=== PATIENT | male | born 1960 | race Two or more races ===

== ENCOUNTER 2016-07-07 19:51 | Inpatient (IN) | payer OTHER ==
[~2016-07-07] VITALS: Ht 160 cm; Wt 65.8 kg
[~2016-07-07 19:51] MED LIST: ALD25 PO; AMLODIPINE BESY10 M1 PO; AMLODIPINE BESYL5 M1 PO; AMLODIPINE10 M1 PO; APAP/HYDROCODON1 T13 PO; APIDRA100 U/M1 SC; ASPIR-LOW81 M1 PO; BUMETANIDE1 MG PO; CARVEDILOL25 M1 PO; CHANTIX STARTING1 MG PO; CLINDAMYCIN HC300 MG PO; COMBIVENT1 ARO IH; CORE25 PO; DUONEB3 ML NEB; ECOTRIN PO; ELA25 PO; ENALAPRIL MALEA20 MG PO; FUROSEMIDE40 MG PO; GABAPENTIN800 M1 PO; GLIPIZIDE10 M2 PO; GLIPIZIDE10 MG PO; GLU10 PO; GOOD SENSE ASPI81 M3 PO; HUMALOG100 U/ML SC; HYDRALAZINE HCL25 MG PO; HYDRALAZINE HYD50 MG PO; HYDRALAZINE50 M1 PO; HYDROCODONE/ACE1 TA2 PO; IBUPROFEN400 MG PO; L40 PO; LAC PO; LANTI SQ; LANTUS SOLOS100 U/M1 SC; LANTUS SOLOS100 U/M1 SQ; LASIX40 MG PO; LEV500 PO; LEVAQUIN750 MG PO; LEVEMIR100 U/M1 SC; LEVEMIR100 U/M1 SQ; LIPITOR40 MG PO; LIPITOR80 MG PO; LORAZEPAM0.5 MG PO; MAGNESIUM OXID400 MG PO; MEDDP PO; METOLAZONE2.5 M1 PO; NEU300 PO; NEURONTIN400 MG PO; NEURONTIN600 MG PO; NICODERM C21 MG/241 TOP; NICOTINE T14 MG/24 H TOP; NOR10T PO; NOR5 PO; NORCO1 TA2 PO; NOVOLIN R100 U/ML SC; PLA75 PO; PREDNISONE5 MG PO; PRILOSEC20 MG PO; QUETIAPINE FUM100 MG PO; SERO100 PO; SEROQUEL200 MG PO; SERTRALINE HYD100 MG PO; SERTRALINE HYDR50 M1 PO; SIMVASTATIN40 M1 PO; SPIRIVA18 MC1 INH; SPIRONOLACTONE25 MG PO; SYMBICORT1 AE2 INH; SYNTHROID0.025 MG PO; THERAGRAN-M1 TA4 PO; TRA100 PO; TRAZODONE150 M1 PO; TRE400 PO; TYLENOL WITH CO1 TA2 PO; ULT50 PO; V10 PO; V2 PO; VENTOLIN H0.09 MG/A1 INH; ZITHROMAX Z-PA250 MG PO; ZOC20 PO
[2016-07-07 20:38] LABS: CALCIUM 8.6 mg/dL (8.5-10.1); CARBON DIOXIDE 33.9 mmol/L (21-32); CREATININE SERUM 1.9 mg/dL (0.7-1.3); POTASSIUM SERUM 3.2 mmol/L (3.5-5.1)
[2016-07-07 20:45] LABS: BILIRUBIN TOTAL 0.5 mg/dL (0.20-1.00); TOTAL PROTEIN, SERUM 7.5 g/dL (6.4-8.2)
[2016-07-07 20:46] LABS: BASOPHIL % 0.4 % (0-2); PLATELET COUNT 232 x10^3mcL (130-400)
[2016-07-07 20:54] LABS: RED CELL DISTRIBUTION WIDTH 16.2 % (11.5-14.5)
[2016-07-07 21:06] LABS: CK-MB 4.6 ng/mL (0-3.6)
[2016-07-07 23:59] VITALS: BP 162/87
[2016-07-08 00:55] VITALS: BP 111/50
[2016-07-08 01:30] LABS: T3 TOTAL 0.73 ng/mL
[2016-07-08 01:40] LABS: FREE THYROXINE INDEX 2.4 ug/dL (1.4-4.5); T4(THYROXINE) 7.4 ug/dL (4.7-13.3)
[2016-07-08 05:38] VITALS: BP 135/78
[2016-07-08 06:05] LABS: CALCIUM 8.2 mg/dL (8.5-10.1); CARBON DIOXIDE 31.8 mmol/L (21-32); CREATININE SERUM 1.8 mg/dL (0.7-1.3); MAGNESIUM 2.6 mg/dL (1.8-2.4); PHOSPHOROUS 4.5 mg/dL (2.5-4.9); POTASSIUM SERUM 3.5 mmol/L (3.5-5.1)
[2016-07-08 06:44] LABS: BASOPHIL % 0.3 % (0-2); PLATELET COUNT 200 x10^3mcL (130-400)
[2016-07-08 09:18] VITALS: BP 129/64
[2016-07-08 13:03] VITALS: BP 118/79
[2016-07-08 13:26] LABS: UA SPECIFIC GRAVITY 1.015 (1.005-1.035); microscopic required? YES; urine erythrocyte 1+ (NEGATIVE)
[2016-07-08 16:23] VITALS: BP 143/63
[2016-07-08 21:15] VITALS: BP 146/75
[2016-07-09 06:10] VITALS: BP 160/80
[2016-07-09 06:40] LABS: CALCIUM 8.3 mg/dL (8.5-10.1); CARBON DIOXIDE 33.9 mmol/L (21-32); MAGNESIUM 2.7 mg/dL (1.8-2.4); PHOSPHOROUS 4.3 mg/dL (2.5-4.9); POTASSIUM SERUM 3.3 mmol/L (3.5-5.1)
[2016-07-09 06:41] LABS: ALBUMIN 3.3 g/dL (3.4-5.0)
[2016-07-09 06:55] LABS: BASOPHIL % 0.1 % (0-2); PLATELET COUNT 214 x10^3mcL (130-400)
[2016-07-09 07:22] LABS: RED CELL DISTRIBUTION WIDTH 16.5 % (11.5-14.5)
[2016-07-09 08:55] VITALS: BP 175/91
[2016-07-09 10:06] VITALS: BP 164/81
[2016-07-09 11:20] VITALS: BP 146/81
[2016-07-09] MEDS ORDERED: K10 PO (16:19)
[2016-07-09] MEDS ORDERED: LEVAQUIN250 M1 PO (16:21)
[2016-07-09] MEDS ORDERED: LAC PO (16:22)
[2016-07-09] MEDS ORDERED: MEDDP PO (16:22)
[2016-07-09] MEDS ORDERED: LANTI SC (16:55)
[2016-07-09] MEDS ORDERED: LANTUS SOLOS100 U/M1 SC (16:56)
[2016-07-09] MEDS ORDERED: [UNRECOGNIZED DRUG - OTHER] (17:16)
[2016-07-09] MEDS ORDERED: AMLODIPINE BES2.5 M1 (17:19)
[2016-07-09] MEDS ORDERED: GLIPIZIDE2.5 M1 (17:20)
[2016-07-09 17:24] VITALS: BP 146/81
== END 2016-07-09 18:11 | disposition home or self-care (01) | DRG 194 ==
LOC: ED 19:51 → DU 22:27
PROVIDERS: Emergency Medicine; ADMIT Family Medicine
DX: I13.0 Hypertensive heart and chronic kidney disease with heart failure and stage 1 through stage 4 chronic kidney disease, or unspecified chronic kidney disease (principal); J96.00 Acute respiratory failure, unspecified whether with hypoxia or hypercapnia; N17.0 Acute kidney failure with tubular necrosis; I50.43 Acute on chronic combined systolic (congestive) and diastolic (congestive) heart failure; E44.0 Moderate protein-calorie malnutrition; J44.1 Chronic obstructive pulmonary disease with (acute) exacerbation; N18.3 Chronic kidney disease, stage 3 (moderate); E87.1 Hypo-osmolality and hyponatremia; D64.9 Anemia, unspecified; E11.65 Type 2 diabetes mellitus with hyperglycemia; E11.42 Type 2 diabetes mellitus with diabetic polyneuropathy; E78.5 Hyperlipidemia, unspecified; F17.200 Nicotine dependence, unspecified, uncomplicated; F32.9 Major depressive disorder, single episode, unspecified; J44.0 Chronic obstructive pulmonary disease with (acute) lower respiratory infection; E87.6 Hypokalemia; E83.41 Hypermagnesemia; Z95.810 Presence of automatic (implantable) cardiac defibrillator; Z91.14 Patient's other noncompliance with medication regimen; Z80.9 Family history of malignant neoplasm, unspecified; Z82.49 Family history of ischemic heart disease and other diseases of the circulatory system; F17.210 Nicotine dependence, cigarettes, uncomplicated; Z86.73 Personal history of transient ischemic attack (TIA), and cerebral infarction without residual deficits
CPT/HCPCS: 36600; 82962; 83880; 84439; 94150; J1815; J1956; J2270; J2920; J2930; J3475; J7030; J7613; J7620; J7633; J7644; Q0092

== ENCOUNTER 2016-07-24 02:53 | Inpatient (IN) | payer OTHER ==
[2016-07-24] VITALS (7 sets, daily range): BP systolic 143–168; BP diastolic 76–95
[~2016-07-24] VITALS: Ht 160 cm; Wt 70.3 kg
[~2016-07-24 02:53] MED LIST changes: +AMLODIPINE BES2.5 M1; +GLIPIZIDE2.5 M1; +K10 PO; +LANTI SC; +LEVAQUIN250 M1 PO; +[UNRECOGNIZED DRUG - OTHER]
[2016-07-24 03:48] LABS: BASOPHIL % 0.7 % (0-2); PLATELET COUNT 226 x10^3mcL (130-400)
[2016-07-24 03:49] LABS: RED CELL DISTRIBUTION WIDTH 16.9 % (11.5-14.5)
[2016-07-24 03:54] LABS: CALCIUM 7.8 mg/dL (8.5-10.1); CARBON DIOXIDE 30.7 mmol/L (21-32); CREATININE SERUM 1.8 mg/dL (0.7-1.3); POTASSIUM SERUM 4.9 mmol/L (3.5-5.1)
[2016-07-24 04:09] LABS: ALBUMIN 3.7 g/dL (3.4-5.0); BILIRUBIN TOTAL 0.47 mg/dL (0.20-1.00); TOTAL PROTEIN, SERUM 6.8 g/dL (6.4-8.2)
[2016-07-24 04:11] LABS: CK-MB 6.4 ng/mL (0-3.6)
[2016-07-24 09:58] LABS: CHOLESTEROL/HDL RATIO 3.5; FREE T4 1.11 ng/dL (0.76-1.46); FREE THYROXINE INDEX 2.7 ug/dL (1.4-4.5)
[2016-07-24 09:59] LABS: T3 TOTAL 0.91 ng/mL
[2016-07-24 16:03] LABS: microscopic required? YES; urine erythrocyte 1+ (NEGATIVE)
[2016-07-25 05:17] VITALS: BP 149/79
[2016-07-25 07:08] LABS: PLATELET COUNT 166 x10^3mcL (130-400)
[2016-07-25 07:31] LABS: BASOPHIL % 0 % (0-2); RED CELL DISTRIBUTION WIDTH 16.4 % (11.5-14.5)
[2016-07-25 09:51] VITALS: BP 155/76
[2016-07-25 10:13] LABS: CALCIUM 7.7 mg/dL (8.5-10.1); CARBON DIOXIDE 29.9 mmol/L (21-32); CREATININE SERUM 1.6 mg/dL (0.7-1.3); MAGNESIUM 2.5 mg/dL (1.8-2.4); PHOSPHOROUS 4.4 mg/dL (2.5-4.9); POTASSIUM SERUM 3.4 mmol/L (3.5-5.1)
[2016-07-25 13:22] VITALS: BP 159/86
[2016-07-25 16:41] VITALS: BP 166/91
[2016-07-25 21:55] VITALS: BP 143/81
[2016-07-26 06:16] VITALS: BP 142/93
[2016-07-26 06:27] LABS: PLATELET COUNT 170 x10^3mcL (130-400)
[2016-07-26 06:43] LABS: CALCIUM 7.5 mg/dL (8.5-10.1); CARBON DIOXIDE 31.4 mmol/L (21-32); CREATININE SERUM 1.7 mg/dL (0.7-1.3); POTASSIUM SERUM 3.4 mmol/L (3.5-5.1)
[2016-07-26 06:48] LABS: BASOPHIL % 0 % (0-2); RED CELL DISTRIBUTION WIDTH 16.5 % (11.5-14.5)
[2016-07-26 09:53] VITALS: BP 165/77
[2016-07-26 13:52] VITALS: BP 138/68
[2016-07-26] MEDS ORDERED: MEDDP PO (14:40)
[2016-07-26 15:04] VITALS: BP 138/68
== END 2016-07-26 16:55 | disposition hospice, home (50) | DRG 140 ==
LOC: ED 02:53 → DU 05:00
PROVIDERS: Emergency Medicine; ADMIT Family Medicine
DX: J44.1 Chronic obstructive pulmonary disease with (acute) exacerbation (principal); J96.21 Acute and chronic respiratory failure with hypoxia; N17.0 Acute kidney failure with tubular necrosis; I50.43 Acute on chronic combined systolic (congestive) and diastolic (congestive) heart failure; D68.69 Other thrombophilia; E11.22 Type 2 diabetes mellitus with diabetic chronic kidney disease; E11.42 Type 2 diabetes mellitus with diabetic polyneuropathy; N18.3 Chronic kidney disease, stage 3 (moderate); E11.51 Type 2 diabetes mellitus with diabetic peripheral angiopathy without gangrene; I27.2 Other secondary pulmonary hypertension; I25.10 Atherosclerotic heart disease of native coronary artery without angina pectoris; F17.210 Nicotine dependence, cigarettes, uncomplicated; I13.0 Hypertensive heart and chronic kidney disease with heart failure and stage 1 through stage 4 chronic kidney disease, or unspecified chronic kidney disease; E87.6 Hypokalemia; E02 Subclinical iodine-deficiency hypothyroidism; I16.0 Hypertensive urgency; D63.8 Anemia in other chronic diseases classified elsewhere; E78.5 Hyperlipidemia, unspecified; F32.9 Major depressive disorder, single episode, unspecified; Z79.4 Long term (current) use of insulin; Z95.1 Presence of aortocoronary bypass graft; Z91.14 Patient's other noncompliance with medication regimen; Z95.810 Presence of automatic (implantable) cardiac defibrillator; Z86.73 Personal history of transient ischemic attack (TIA), and cerebral infarction without residual deficits; Z79.899 Other long term (current) drug therapy; Z79.84 Long term (current) use of oral hypoglycemic drugs; Z71.6 Tobacco abuse counseling
CPT/HCPCS: 36600; 82962; 83880; 84439; J0360; J1815; J1956; J2270; J2920; J2930; J3475; J7030; J7613; J7620; J7633; J7644; Q0092

== ENCOUNTER 2016-10-06 21:51 | Inpatient (IN) | payer OTHER ==
[~2016-10-06] VITALS: Ht 170.2 cm; Wt 68.0 kg
--- NOTE | 2016-10-06 22:00 | NUR ---
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 PT HAS HX OF CHF AND COPD; PRESENT DIAPHORETIC AND ON CPAP ON 10 L. PER MEDIC PT WAS SEEN IN TRIPOD POSITION, SHALLOW RESP AND AUDIBLE WHEEZING. MEDICS PLACED 18 G TO RFA. PT AWAKE AND ALERT, STS NO PAIN AT THIS TIME. CONNECTED TO FULL CM. PER MEDICS PT'S BP WAS 186/110 AND RR WAS [address] WITH O2 SAT OF 94%, AFTER CPAP, RESP IMPROVED, O2 SAT UP TO 100%
--- NOTE | 2016-10-06 22:19 | NUR ---
XRAY AT BEDSIDE
--- NOTE | 2016-10-06 22:24 | NUR ---
LAB AND RT AT BEDSIDE; PT BEGAN RAISING ARMS AND SAYING "NO, NO!" REFUSING RT AND LAB DRAW.
--- NOTE | 2016-10-06 22:26 | NUR ---
PT BECAME COMBATIVE DURING ABG ATTEMPT, JERKING HIS ARMS AWAY AND YELLING. HE WILL NOT ALLOW A SECOND ATTEMPT AT THIS TIME. DR. RODRIGUEZ NOTIFIED.
--- NOTE | 2016-10-06 22:30 | NUR ---
REFUELING RAMPMAN PER MD ORDER; PT COOPERATIVE AT THIS TIME.
--- NOTE | 2016-10-06 23:15 | NUR ---
LAB AT BEDSIDE; PT COOPERATIVE
[2016-10-06 23:29] LABS: BASOPHIL % 0.2 % (0-2); PLATELET COUNT 172 x10^3mcL (130-400)
[2016-10-06 23:36] LABS: RED CELL DISTRIBUTION WIDTH 16.2 % (11.5-14.5)
[2016-10-06 23:52] LABS: ALBUMIN 3.6 g/dL (3.4-5.0); BILIRUBIN TOTAL 0.51 mg/dL (0.20-1.00); CALCIUM 8.2 mg/dL (8.5-10.1); CARBON DIOXIDE 28.4 mmol/L (21-32); CREATININE SERUM 2.3 mg/dL (0.7-1.3); POTASSIUM SERUM 4.2 mmol/L (3.5-5.1); TOTAL PROTEIN, SERUM 7.1 g/dL (6.4-8.2)
--- NOTE | 2016-10-07 00:25 | NUR ---
PT IN BED SITTING IN HIGH LEVI'S. PT IMMEDIATELY BEGAN YELLING, "I WANT TO GO TO THE BATHROOM!" ADVISED PT TO USE BEDPAN, PT REFUSED AND MOTIONED TO THROW BEDPAN AT MYSELF AND CONTINUED TO YELL "NO, I WANT TO GO TO THE BATHROOM!" RT CALLED
--- NOTE | 2016-10-07 00:26 | NUR ---
PT REMOVED IV; BLEEDING CONTROLLED.
--- NOTE | 2016-10-07 00:45 | NUR ---
RT CAME, REMOVED PT FROM CPAP. PT STS FEELING BETTER. PT TO RESTROOM VIA WC, RETURNED WITHOUT INCIDENT. PT PLACED ON NC 3 L, O2 SAT AT 99%
--- NOTE | 2016-10-07 01:01 | NUR ---
REORT GIVEN TP PHILOMENA TO ASSUME CARE OF PT
--- NOTE | 2016-10-07 01:03 | NUR ---
PT UNABLE TO RECALL MEDS TAKEN AT HOME
--- NOTE | 2016-10-07 01:48 | NUR ---
PT ADMITTED VIA [facility] AT THIS TIME
[2016-10-07 02:00] VITALS: BP 166/85
[2016-10-07 02:23] LABS: PHOSPHOROUS 4.3 mg/dL (2.5-4.9)
[2016-10-07 02:26] LABS: T3 TOTAL 1.03 ng/mL
[2016-10-07 02:35] LABS: FREE T4 1.24 ng/dL (0.76-1.46); FREE THYROXINE INDEX 3.2 ug/dL (1.4-4.5); T4(THYROXINE) 9.4 ug/dL (4.7-13.3)
--- NOTE | 2016-10-07 02:42 | NUR ---
RECEIVED FROM ER DEPT VIA [facility] ACCOMPANIED BY ER STAFFS WITH CHIEF CC OF SHORTNESS OF BREATHE SICE THIS EVENING. PATIENT WAS VERY ANXIOUS UPON RECIEVING FROM ER, APPARENTLY GETS ESILY IRRITATED ESPECIALLY DURING ASSESSMENTS. PLACED COMFORTABLY IN BED. ROUTINE ADMISSION CARE RENDERED. VITAL SIGNS TAKEN AND RECORDED. 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 SANDWICH AND 4CUPS OF APPLE HUICE SERVED ORDERED. IVF NS AT 100CC/HR INFUSING VIA PERIPHERAL AT THE RAC TOLERATING WELL. PLACED CALL LIGHT WITHIN REACH, INSTRUCTED TO CALL FOR ANY ASSSITANCE ENEDED AND VERBALIZED UNDERSTANDING. PAIN LEVEL 0/10.
--- NOTE | 2016-10-07 02:42 | NUR ---
LACTIC ACID=2.4, DR DUQUE MADE AWARE. MD AT BEDSIDE ASSESSING PT AND INTERVIEWING PT, APPARENTLY PT GETS EASILY IRRITATED /VERY ANXIOUS AT THIS TIME, PT KEEPS ON ASKING FOOD AND WATER. WILL CONTINUE TO MONITOR.
--- NOTE | 2016-10-07 04:01 | NUR ---
NR=023/92, DR FISHER MADE AWARE, HYDRALAZINE 10MG IVP GIVEN PRN MEDICATION, WILL MONITOR EFFECTIVENESS,.
--- NOTE | 2016-10-07 05:15 | NUR ---
BLOOD AAAUX=754, LUIS MADE AWARE, 21 UNITS REGULAR INSULIN GIVEN SQ, AND WILL CHECK BLOOD SUGAR IN 30MINS.
--- NOTE | 2016-10-07 06:00 | NUR ---
BLOOD SUGAR 585, HRI 21 UNITS GIVEN SQ COVERAGE PER DR PRESTON'S ORDER. SOLUMEDOL GIVEN IVP SCHEDULED, NORVASC AND COREG GIVEN FOR BP 178/88, DR DUQUE/DR FISHER ORDERED. MORPHINE 2MG IVP FOR SEVERE BLE PAIN ON SCALE 8/10. WILL CONTINUE TO MONITOR.
--- NOTE | 2016-10-07 06:13 | NUR ---
DR. DUQUE REMINDED AGAIN OF PTS INITIAL LACTIC ACID OF 2.4 AND NO ORDER AT THIS TIME.
[2016-10-07 06:20] VITALS: BP 178/88
[2016-10-07 07:29] LABS: microscopic required? YES; urine erythrocyte 1+ (NEGATIVE)
[2016-10-07 07:41] LABS: AMPHETAMINE QUAL UR NONE DETECTED (NEG <=1000)
--- NOTE | 2016-10-07 07:59 | NUR ---
AWAKE AND ALERT. NO ACUTE DISTRESS NOTED. NO C/O PAIN AT THIS TIME. IVF INFUSING WELL AND SITE CLEAR. CALL LIGHT WITHIN REACH. WILL CONTINUE W/PLAN OF CARE.
[2016-10-07 08:52] LABS: BASOPHIL % 0.1 % (0-2); PLATELET COUNT 153 x10^3mcL (130-400)
[2016-10-07 08:58] LABS: CARBON DIOXIDE 25.7 mmol/L (21-32); CREATININE SERUM 2.1 mg/dL (0.7-1.3); PHOSPHOROUS 2.4 mg/dL (2.5-4.9); POTASSIUM SERUM 3.9 mmol/L (3.5-5.1)
[2016-10-07 10:56] VITALS: BP 147/74
--- NOTE | 2016-10-07 12:38 | NUR ---
C/O PAIN TO BLE 12/04. MEDICATED WITH MORPHINE IVP
[2016-10-07 14:15] VITALS: BP 149/79
--- NOTE | 2016-10-07 14:59 | NUR ---
PT SLEEPING AT THIS TIME, NO DISTRESS NOTED. NO S/S OF PAIN OR DISCOMFORT.
[2016-10-07 16:50] VITALS: Ht 170.2 cm; Wt 68.0 kg
[2016-10-07 18:15] VITALS: BP 150/74
--- NOTE | 2016-10-07 18:47 | NUR ---
REMAINS IN NO DISTRESS. AWAKE ALERT AND ORIENTED. TOLERATED WELL WITH MEALS.NO C/O PAIN OR DISCOMFORT AT THIS TIME. HL PATENT.CALL LIGHT WITHIN REACH. WILL BE ENDORSED TO INCOMING SHIFT.
--- NOTE | 2016-10-07 19:41 | NUR ---
PT CURRENTLY RESTING IN BED, C/O MILD SHORTNESS OF BREATH, RT NOTIFIED FOR TREATMENT. A/O X4. TELE #30 SHOWING SINUS RHYTHM WITH DEPRESSED T WAVE, DENIES CHEST PAIN. PULSES PALPABLE IN ALL EXTREMITIES, TRACE EDEMA NOTED TO BLE. LUNG SOUNDS DIMINISHED BILATERALLY. BOWEL SOUNDS ACTIVE, LAST BM 10/06/16. VOIDING WELL. MILD GENERALIZED WEAKNESS NOTED. SKIN INTACT. DENIES PAIN AT THIS TIME. IV PATENT AND INTACT. BED IN LOWEST POSITION, SIDE RAILS UP X2, SCDS IN PLACE, CALL LIGHT WITHIN REACH. WILL CONTINUE TO MONITOR.
[2016-10-07 20:41] VITALS: BP 148/72
--- NOTE | 2016-10-08 01:13 | NUR ---
PT CURRENTLY RESTING IN BED, NO ACUTE DISTRESS. WILL CONTINUE TO MONITOR.
[2016-10-08 05:13] VITALS: BP 152/77
[2016-10-08 06:00] LABS: PLATELET COUNT 180 x10^3mcL (130-400)
--- NOTE | 2016-10-08 06:03 | NUR ---
PT SLEPT PERIODICALLY THROUGHOUT NIGHT, NO ACUTE DISTRESS. ALL NEEDS MET AND ATTENDED TO. NO SIGNIFICANT CHANGES. IV PATENT AND INTACT. MEDICATED PAIN PER EMAR. BED IN LOWEST POSITION, SIDE RAILS UP X2, CALL LIGHT WITHIN REACH. WILL ENDORSE CARE TO ONCOMING NURSE.
[2016-10-08 06:24] LABS: CALCIUM 8.3 mg/dL (8.5-10.1); CARBON DIOXIDE 30.4 mmol/L (21-32); CREATININE SERUM 1.9 mg/dL (0.7-1.3); MAGNESIUM 1.9 mg/dL (1.8-2.4); PHOSPHOROUS 5.4 mg/dL (2.5-4.9); POTASSIUM SERUM 3.8 mmol/L (3.5-5.1)
[2016-10-08 06:30] LABS: BASOPHIL % 0 % (0-2); RED CELL DISTRIBUTION WIDTH 16.2 % (11.5-14.5)
--- NOTE | 2016-10-08 07:46 | NUR ---
RECEIVED SLEEPING BUT AROUSABLE. NO ACUTE RESP. DISTRESS NOTED. NO C/O PAIN OR DISCOMFORT. HL PATENT. CALL LIGHT WITHIN REACH. WILL CONTINUE W/PLAN OF CARE.
[2016-10-08 09:48] VITALS: BP 138/87
[2016-10-08 09:49] VITALS: BP 137/68
[2016-10-08 13:38] VITALS: BP 147/85
--- NOTE | 2016-10-08 14:02 | NUR ---
PT IS MORE AWAKE NOW, TRYING TO CALL HIS BROTHER. NO ACUTE DISTRESS NOTED. NO C/O PAIN OR DISCOMFORT AT THIS TIME.
[2016-10-08] MEDS ORDERED: MEDDP PO (15:33)
[2016-10-08 15:43] VITALS: BP 147/85
[2016-10-08] MEDS ORDERED: IPRATROPIUM BROM3 M2 INH (15:49)
--- NOTE | 2016-10-08 18:52 | NUR ---
PT DC'D HOME IN NO DISTRESS. AWAKE, ALERT AND ORIENTED. DC INSTRUCTIONS REVIEWED WITH PT AND BROTHER, THEY BOTH VERBALIZED UNDERSTANDING. HL REMOVED AND SITE CLEAR. PT DENIES PAIN OR DISCOMFORT AT THE TIME OF DC. PERSONAL BELONGINGS TAKEN HOME.
== END 2016-10-08 18:24 | disposition home or self-care (01) | DRG 194 ==
LOC: ED 21:51 → DU 23:56
PROVIDERS: Emergency Medicine; Pediatrics; ADMIT Family Medicine
DX: I11.0 Hypertensive heart disease with heart failure (principal); J96.00 Acute respiratory failure, unspecified whether with hypoxia or hypercapnia; N17.0 Acute kidney failure with tubular necrosis; E11.40 Type 2 diabetes mellitus with diabetic neuropathy, unspecified; I27.2 Other secondary pulmonary hypertension; E11.51 Type 2 diabetes mellitus with diabetic peripheral angiopathy without gangrene; E83.39 Other disorders of phosphorus metabolism; J44.1 Chronic obstructive pulmonary disease with (acute) exacerbation; I50.43 Acute on chronic combined systolic (congestive) and diastolic (congestive) heart failure; I25.10 Atherosclerotic heart disease of native coronary artery without angina pectoris; E78.5 Hyperlipidemia, unspecified; E11.65 Type 2 diabetes mellitus with hyperglycemia; F32.9 Major depressive disorder, single episode, unspecified; F17.210 Nicotine dependence, cigarettes, uncomplicated; I16.0 Hypertensive urgency; E83.51 Hypocalcemia; D63.8 Anemia in other chronic diseases classified elsewhere; Z95.1 Presence of aortocoronary bypass graft; Z95.810 Presence of automatic (implantable) cardiac defibrillator; Z79.82 Long term (current) use of aspirin; Z79.4 Long term (current) use of insulin; Z82.49 Family history of ischemic heart disease and other diseases of the circulatory system; Z80.9 Family history of malignant neoplasm, unspecified
CPT/HCPCS: 36600; 82962; 83880; 84439; C9113; J0360; J0696; J1815; J2270; J2920; J2930; J7030; J7613; J7620; Q0092

== ENCOUNTER 2017-02-15 03:43 | Inpatient (IN) | payer OTHER ==
[~2017-02-15] VITALS: Ht 152.4 cm; Wt 60.9 kg
[2017-02-15] VITALS (7 sets, daily range): BP systolic 131–152; BP diastolic 69–92
[~2017-02-15 03:43] MED LIST changes: +IPRATROPIUM BROM3 M2 INH
[2017-02-15 04:30] LABS: PLATELET COUNT 185 x10^3mcL (130-400); RED CELL DISTRIBUTION WIDTH 14.2 % (11.5-14.5)
[2017-02-15 04:31] LABS: BASOPHIL % 3.8 % (0-2)
[2017-02-15 04:41] LABS: CALCIUM 7.8 mg/dL (8.5-10.1); CARBON DIOXIDE 25.9 mmol/L (21-32); CREATININE SERUM 2.2 mg/dL (0.7-1.3); POTASSIUM SERUM 5.1 mmol/L (3.5-5.1)
[2017-02-15 04:46] LABS: BILIRUBIN TOTAL 0.46 mg/dL (0.20-1.00); TOTAL PROTEIN, SERUM 6.4 g/dL (6.4-8.2)
[2017-02-15 04:51] LABS: ALBUMIN 3.1 g/dL (3.4-5.0)
[2017-02-15 06:32] LABS: T3 TOTAL 0.82 ng/mL
[2017-02-15 06:58] LABS: PHOSPHOROUS 4.6 mg/dL (2.5-4.9)
[2017-02-15 07:03] LABS: CHOLESTEROL/HDL RATIO 4.3
[2017-02-15 07:07] LABS: FREE T4 1.27 ng/dL (0.76-1.46); T4(THYROXINE) 8.4 ug/dL (4.7-13.3)
[2017-02-15 07:32] LABS: UA SPECIFIC GRAVITY 1.015 (1.005-1.035); microscopic required? YES; urine erythrocyte 1+ (NEGATIVE)
[2017-02-15 09:30] LABS: AMPHETAMINE QUAL UR NONE DETECTED (NEG <=1000)
[2017-02-16 06:11] VITALS: BP 137/97
[2017-02-16 06:26] VITALS: BP 125/68
[2017-02-16 06:38] LABS: BASOPHIL % 0.2 % (0-2); PLATELET COUNT 194 x10^3mcL (130-400)
[2017-02-16 06:55] LABS: CALCIUM 8.3 mg/dL (8.5-10.1); CREATININE SERUM 2.2 mg/dL (0.7-1.3); POTASSIUM SERUM 3.1 mmol/L (3.5-5.1)
[2017-02-16 06:58] LABS: RED CELL DISTRIBUTION WIDTH 15.6 % (11.5-14.5)
[2017-02-16 08:57] VITALS: BP 147/69
[2017-02-16 18:05] VITALS: BP 154/74
[2017-02-16 21:04] VITALS: BP 144/77
[2017-02-17 05:59] VITALS: BP 139/66
[2017-02-17 06:37] LABS: BASOPHIL % 0.2 % (0-2); PLATELET COUNT 183 x10^3mcL (130-400)
[2017-02-17 06:57] LABS: RED CELL DISTRIBUTION WIDTH 15.4 % (11.5-14.5)
[2017-02-17 07:03] LABS: CALCIUM 8.4 mg/dL (8.5-10.1); CARBON DIOXIDE 31.9 mmol/L (21-32); CREATININE SERUM 2.3 mg/dL (0.7-1.3); PHOSPHOROUS 3.7 mg/dL (2.5-4.9); POTASSIUM SERUM 3.4 mmol/L (3.5-5.1)
[2017-02-17 09:57] VITALS: BP 143/68
[2017-02-17 17:06] VITALS: BP 111/69
[2017-02-17 21:53] VITALS: BP 147/59
[2017-02-18 06:03] VITALS: BP 139/61
[2017-02-18 06:15] LABS: PLATELET COUNT 220 x10^3mcL (130-400)
[2017-02-18 06:27] LABS: CALCIUM 8.3 mg/dL (8.5-10.1); CARBON DIOXIDE 35.7 mmol/L (21-32); CREATININE SERUM 2.1 mg/dL (0.7-1.3)
[2017-02-18 06:49] LABS: BASOPHIL % 0 % (0-2); RED CELL DISTRIBUTION WIDTH 14.6 % (11.5-14.5)
[2017-02-18 09:18] VITALS: BP 139/76
[2017-02-18] MEDS ORDERED: LEVAQUIN750 MG PO (10:07)
[2017-02-18] MEDS ORDERED: CLEOCIN HCL300 MG PO (10:08)
[2017-02-18] MEDS ORDERED: LAC PO (10:09)
[2017-02-18] MEDS ORDERED: MEDDP PO ×2 (10:10→10:13)
[2017-02-18] MEDS ORDERED: COUMADIN5 MG PO (13:39)
[2017-02-18 15:18] VITALS: BP 139/76
[2017-02-18 15:39] VITALS: Ht 152.4 cm; Wt 60.9 kg
[2017-02-18 17:06] VITALS: BP 149/72
[2017-02-18] MEDS ORDERED: FUROSEMIDE40 MG PO (18:22)
[2017-02-18] MEDS ORDERED: BUMETANIDE1 MG PO ×2 (18:23→18:25)
[2017-02-18] MEDS ORDERED: LASIX40 MG PO (18:25)
== END 2017-02-18 18:39 | disposition home or self-care (01) | DRG 137 ==
LOC: ED 03:43 → DU 05:20 → MU 02-16 11:30
PROVIDERS: Emergency Medicine; Family Medicine; ADMIT Family Medicine
PROC: 5A09357 Assistance with Respiratory Ventilation, Less than 24 Consecutive Hours, Continuous Positive Airway Pressure (ICD-10-PCS; principal; 2017-02-15)
DX: J69.0 Pneumonitis due to inhalation of food and vomit (principal); N17.0 Acute kidney failure with tubular necrosis; I50.43 Acute on chronic combined systolic (congestive) and diastolic (congestive) heart failure; E11.22 Type 2 diabetes mellitus with diabetic chronic kidney disease; E11.40 Type 2 diabetes mellitus with diabetic neuropathy, unspecified; E44.0 Moderate protein-calorie malnutrition; E83.51 Hypocalcemia; I27.20 Pulmonary hypertension, unspecified; I48.2 Chronic atrial fibrillation; I48.91 Unspecified atrial fibrillation; E11.51 Type 2 diabetes mellitus with diabetic peripheral angiopathy without gangrene; E11.65 Type 2 diabetes mellitus with hyperglycemia; I13.0 Hypertensive heart and chronic kidney disease with heart failure and stage 1 through stage 4 chronic kidney disease, or unspecified chronic kidney disease; N18.3 Chronic kidney disease, stage 3 (moderate); J44.1 Chronic obstructive pulmonary disease with (acute) exacerbation; F32.9 Major depressive disorder, single episode, unspecified; E87.6 Hypokalemia; I16.0 Hypertensive urgency; I25.10 Atherosclerotic heart disease of native coronary artery without angina pectoris; E78.5 Hyperlipidemia, unspecified; D63.8 Anemia in other chronic diseases classified elsewhere; F17.210 Nicotine dependence, cigarettes, uncomplicated; Z79.4 Long term (current) use of insulin; Z95.810 Presence of automatic (implantable) cardiac defibrillator; Z95.1 Presence of aortocoronary bypass graft; Z82.49 Family history of ischemic heart disease and other diseases of the circulatory system; Z80.9 Family history of malignant neoplasm, unspecified; Z68.31 Body mass index [BMI] 31.0-31.9, adult; Z91.14 Patient's other noncompliance with medication regimen
CPT/HCPCS: 82962; 83880; 84439; 94150; G0480; J0456; J0696; J1815; J1885; J1940; J1956; J2920; J2930; J3480; J3490; J7030; J7050; J7620; J7633; Q0092

== ENCOUNTER 2017-03-24 00:44 | Inpatient (IN) | payer OTHER ==
[~2017-03-24] VITALS: Ht 160 cm; Wt 73.0 kg
[2017-03-24] VITALS (7 sets, daily range): BP systolic 137–166; BP diastolic 51–92; Ht 160 cm; Wt 73.0 kg
[~2017-03-24 00:44] MED LIST changes: +CLEOCIN HCL300 MG PO; +COUMADIN5 MG PO
[2017-03-24 02:42] LABS: microscopic required? YES; urine erythrocyte 1+ (NEGATIVE)
[2017-03-24 02:51] LABS: AMPHETAMINE QUAL UR NONE DETECTED (NEG <=1000)
[2017-03-25 06:21] VITALS: BP 153/83
[2017-03-25 06:47] LABS: BASOPHIL % 0.3 % (0-2); PLATELET COUNT 191 x10^3mcL (130-400)
[2017-03-25 07:08] LABS: RED CELL DISTRIBUTION WIDTH 16.3 % (11.5-14.5)
[2017-03-25 07:16] LABS: CALCIUM 8.6 mg/dL (8.5-10.1); CARBON DIOXIDE 27.7 mmol/L (21-32); POTASSIUM SERUM 4.1 mmol/L (3.5-5.1)
[2017-03-25 09:41] VITALS: BP 108/81
[2017-03-25 11:27] VITALS: BP 108/81
[2017-03-25] MEDS ORDERED: LANTUS SOLOS100 U/M1 INJ (12:42)
[2017-03-25] MEDS ORDERED: CAPTOPRIL25 MG PO (12:43)
[2017-03-25] MEDS ORDERED: CARVEDILOL3.125 M1 PO (13:05)
[2017-03-25] MEDS ORDERED: LANTUS SOLOS100 U/M1 PO (13:06)
[2017-03-25] MEDS ORDERED: GLUCOTROL10 MG PO (13:08)
[2017-03-25] MEDS ORDERED: APIDRA SOLOS100 U/ML SC (13:33)
[2017-03-25] MEDS ORDERED: BECLOMETHASONE INH (13:46)
[2017-03-25] MEDS ORDERED: PREDNISONE10 MG PO (14:05)
[2017-03-25] MEDS ORDERED: Qvar INH (14:07)
== END 2017-03-25 15:45 | disposition home or self-care (01) | DRG 194 ==
LOC: ED 00:44 → DU 02:38
PROVIDERS: Emergency Medicine; Family Medicine
DX: I11.0 Hypertensive heart disease with heart failure (principal); N17.0 Acute kidney failure with tubular necrosis; D68.69 Other thrombophilia; E11.51 Type 2 diabetes mellitus with diabetic peripheral angiopathy without gangrene; E11.65 Type 2 diabetes mellitus with hyperglycemia; E11.42 Type 2 diabetes mellitus with diabetic polyneuropathy; I50.43 Acute on chronic combined systolic (congestive) and diastolic (congestive) heart failure; J44.1 Chronic obstructive pulmonary disease with (acute) exacerbation; I42.2 Other hypertrophic cardiomyopathy; F32.9 Major depressive disorder, single episode, unspecified; N28.1 Cyst of kidney, acquired; R80.9 Proteinuria, unspecified; R31.9 Hematuria, unspecified; F17.210 Nicotine dependence, cigarettes, uncomplicated; Z91.19 Patient's noncompliance with other medical treatment and regimen; Z86.73 Personal history of transient ischemic attack (TIA), and cerebral infarction without residual deficits; Z95.1 Presence of aortocoronary bypass graft; I25.10 Atherosclerotic heart disease of native coronary artery without angina pectoris; Z95.810 Presence of automatic (implantable) cardiac defibrillator
CPT/HCPCS: 36600; 82962; 83880; 84439; 87804; 94150; J1815; J2930; J7620; Q0092

== ENCOUNTER 2017-05-28 20:54 | Inpatient (IN) | payer OTHER ==
[~2017-05-28] VITALS: Ht 160 cm; Wt 76.3 kg
[~2017-05-28 20:54] MED LIST changes: +APIDRA SOLOS100 U/ML SC; +BECLOMETHASONE INH; +CAPTOPRIL25 MG PO; +CARVEDILOL3.125 M1 PO; +GLUCOTROL10 MG PO; +LANTUS SOLOS100 U/M1 INJ; +LANTUS SOLOS100 U/M1 PO; +PREDNISONE10 MG PO; +Qvar INH
[2017-05-28 22:11] LABS: BASOPHIL % 0.2 % (0-2); PLATELET COUNT 243 x10^3mcL (130-400)
[2017-05-28 22:12] LABS: RED CELL DISTRIBUTION WIDTH 16.7 % (11.5-14.5)
[2017-05-28 22:18] LABS: CALCIUM 7.4 mg/dL (8.5-10.1); CARBON DIOXIDE 29.7 mmol/L (21-32); CREATININE SERUM 2.2 mg/dL (0.7-1.3); POTASSIUM SERUM 4.3 mmol/L (3.5-5.1)
[2017-05-28 22:23] LABS: BILIRUBIN TOTAL 0.4 mg/dL (0.20-1.00); TOTAL PROTEIN, SERUM 6.5 g/dL (6.4-8.2)
[2017-05-28 22:24] LABS: ALBUMIN 2.9 g/dL (3.4-5.0)
[2017-05-29] VITALS (8 sets, daily range): BP systolic 128–172; BP diastolic 72–94
[2017-05-29 01:45] LABS: MAGNESIUM 2.1 mg/dL (1.8-2.4); PHOSPHOROUS 4.3 mg/dL (2.5-4.9)
[2017-05-29 01:46] LABS: CHOLESTEROL/HDL RATIO 2.4
[2017-05-29 01:53] LABS: T3 TOTAL 0.86 ng/mL
[2017-05-29 02:00] LABS: FREE T4 1.11 ng/dL (0.76-1.46); FREE THYROXINE INDEX 2.7 ug/dL (1.4-4.5); T4(THYROXINE) 7.4 ug/dL (4.7-13.3)
[2017-05-29 04:14] LABS: microscopic required? YES; urine erythrocyte 1+ (NEGATIVE)
[2017-05-29 04:23] LABS: AMPHETAMINE QUAL UR NONE DETECTED (NEG <=1000)
[2017-05-29 05:58] LABS: BASOPHIL % 0.7 % (0-2); PLATELET COUNT 220 x10^3mcL (130-400)
[2017-05-29 06:19] LABS: CALCIUM 7.5 mg/dL (8.5-10.1); CARBON DIOXIDE 26.1 mmol/L (21-32); POTASSIUM SERUM 3.9 mmol/L (3.5-5.1)
[2017-05-29 07:00] LABS: RED CELL DISTRIBUTION WIDTH 16.8 % (11.5-14.5)
[2017-05-30 05:53] VITALS: BP 142/65
[2017-05-30 06:24] LABS: BASOPHIL % 0.8 % (0-2); PLATELET COUNT 202 x10^3mcL (130-400)
[2017-05-30 06:38] LABS: CALCIUM 7.7 mg/dL (8.5-10.1); CARBON DIOXIDE 27.2 mmol/L (21-32); CREATININE SERUM 1.9 mg/dL (0.7-1.3)
[2017-05-30 06:40] LABS: RED CELL DISTRIBUTION WIDTH 16.4 % (11.5-14.5)
[2017-05-30 09:17] VITALS: BP 160/92
[2017-05-30 13:32] VITALS: BP 159/84
[2017-05-30 17:46] VITALS: BP 163/82
[2017-05-30 20:21] VITALS: BP 135/78
[2017-05-31 05:12] VITALS: BP 160/85
[2017-05-31 06:50] LABS: BASOPHIL % 0.6 % (0-2); PLATELET COUNT 195 x10^3mcL (130-400)
[2017-05-31 06:51] LABS: CALCIUM 7.9 mg/dL (8.5-10.1); CARBON DIOXIDE 25.9 mmol/L (21-32); CREATININE SERUM 1.7 mg/dL (0.7-1.3); POTASSIUM SERUM 3.5 mmol/L (3.5-5.1)
[2017-05-31 07:05] LABS: RED CELL DISTRIBUTION WIDTH 16.6 % (11.5-14.5)
[2017-05-31 08:27] VITALS: Ht 160 cm; Wt 76.3 kg
[2017-05-31] MEDS ORDERED: LASIX20 MG PO (08:50)
[2017-05-31 10:12] VITALS: BP 139/90
[2017-05-31] MEDS ORDERED: BACTROBAN22 TOP (10:41)
[2017-05-31] MEDS ORDERED: HIB240 TOP (10:43)
[2017-05-31 14:19] VITALS: BP 139/90
== END 2017-05-31 18:49 | disposition home or self-care (01) | DRG 194 ==
LOC: ED 20:54 → DU 23:10 → MU 05-30 08:50
PROVIDERS: Emergency Medicine; Family Medicine
DX: I11.0 Hypertensive heart disease with heart failure (principal); N17.0 Acute kidney failure with tubular necrosis; E43 Unspecified severe protein-calorie malnutrition; E11.40 Type 2 diabetes mellitus with diabetic neuropathy, unspecified; Z95.1 Presence of aortocoronary bypass graft; F32.9 Major depressive disorder, single episode, unspecified; J44.9 Chronic obstructive pulmonary disease, unspecified; I50.9 Heart failure, unspecified; Z95.0 Presence of cardiac pacemaker; I25.10 Atherosclerotic heart disease of native coronary artery without angina pectoris; F17.200 Nicotine dependence, unspecified, uncomplicated; E78.5 Hyperlipidemia, unspecified; I50.43 Acute on chronic combined systolic (congestive) and diastolic (congestive) heart failure; E83.51 Hypocalcemia; Z91.19 Patient's noncompliance with other medical treatment and regimen; E87.1 Hypo-osmolality and hyponatremia; D64.9 Anemia, unspecified; I42.2 Other hypertrophic cardiomyopathy
CPT/HCPCS: 82962; 83880; 84439; 94150; J1815; J1885; J1940; J7040; J7620; J7626; Q0092

== ENCOUNTER 2017-10-07 23:08 | Inpatient (IN) | payer OTHER ==
[~2017-10-07] VITALS: Ht 182.9 cm; Wt 61.2 kg
[~2017-10-07 23:08] MED LIST changes: +BACTROBAN22 TOP; +HIB240 TOP; +LASIX20 MG PO
[2017-10-08 04:56] LABS: CALCIUM 8.1 mg/dL (8.5-10.1); CARBON DIOXIDE 31.4 mmol/L (21-32); POTASSIUM SERUM 3.4 mmol/L (3.5-5.1)
[2017-10-08 05:01] LABS: BILIRUBIN TOTAL 0.58 mg/dL (0.20-1.00); TOTAL PROTEIN, SERUM 7.3 g/dL (6.4-8.2)
[2017-10-08 05:23] LABS: BASOPHIL % 0.7 % (0-2)
[2017-10-08 05:29] LABS: PLATELET COUNT 188 x10^3mcL (130-400)
[2017-10-08 05:31] LABS: RED CELL DISTRIBUTION WIDTH 19.2 % (11.5-14.5)
[2017-10-08] MEDS ORDERED: BUMETANIDE2 MG PO (06:22)
[2017-10-08] MEDS ORDERED: CARVEDILOL25 M1 PO (06:23)
[2017-10-08] MEDS ORDERED: COLACE100 MG PO (06:25)
[2017-10-08] MEDS ORDERED: GLUCOTROL10 MG PO (06:26)
[2017-10-08] MEDS ORDERED: GABAPENTIN400 M1 PO (06:26)
[2017-10-08] MEDS ORDERED: HYDRALAZINE HCL25 MG PO (06:28)
[2017-10-08] MEDS ORDERED: NOR10T PO (06:30)
[2017-10-08] MEDS ORDERED: LANTI SQ (06:31)
[2017-10-08] MEDS ORDERED: HUMALOG100 U/ML SQ (06:34)
[2017-10-08] MEDS ORDERED: MIRALAX17 GM/Dose PO (06:39)
[2017-10-08] MEDS ORDERED: METOLAZONE2.5 M1 PO (06:39)
[2017-10-08] MEDS ORDERED: ZOLOFT100 MG PO (06:40)
[2017-10-08] MEDS ORDERED: KLOR-CON M2020 MEQ PO (06:40)
[2017-10-08] MEDS ORDERED: RENVELA800 M1 PO (06:40)
[2017-10-08] MEDS ORDERED: FLOMAX0.4 MG PO (06:41)
[2017-10-08] MEDS ORDERED: TRA50 PO (06:42)
[2017-10-08] MEDS ORDERED: ZINC SULFATE220 MG PO (06:43)
[2017-10-08 07:32] LABS: FREE T4 0.46 ng/dL (0.76-1.46)
[2017-10-08 07:35] LABS: T3 TOTAL 0.44 ng/mL
[2017-10-08 07:37] LABS: FREE THYROXINE INDEX 1.1 ug/dL (1.4-4.5); T4(THYROXINE) 3.5 ug/dL (4.7-13.3)
[2017-10-08 08:11] LABS: MAGNESIUM 2.5 mg/dL (1.8-2.4); PHOSPHOROUS 5.4 mg/dL (2.5-4.9)
[2017-10-08 09:27] VITALS: BP 142/78
[2017-10-08 12:41] VITALS: BP 148/99
[2017-10-08 17:36] VITALS: BP 110/74
== END 2017-10-08 20:15 | disposition left against medical advice (07) | DRG 812 ==
LOC: ED 23:08 → DU 10-08 05:49
PROVIDERS: Emergency Medicine; Family Medicine
DX: T38.3X1A Poisoning by insulin and oral hypoglycemic [antidiabetic] drugs, accidental (unintentional), initial encounter (principal); N17.0 Acute kidney failure with tubular necrosis; I50.43 Acute on chronic combined systolic (congestive) and diastolic (congestive) heart failure; E11.649 Type 2 diabetes mellitus with hypoglycemia without coma; E11.65 Type 2 diabetes mellitus with hyperglycemia; D68.59 Other primary thrombophilia; Z53.21 Procedure and treatment not carried out due to patient leaving prior to being seen by health care provider; I42.2 Other hypertrophic cardiomyopathy; F32.9 Major depressive disorder, single episode, unspecified; S20.212A Contusion of left front wall of thorax, initial encounter; S60.222A Contusion of left hand, initial encounter; W18.39XA Other fall on same level, initial encounter; E44.1 Mild protein-calorie malnutrition; I11.0 Hypertensive heart disease with heart failure; E03.9 Hypothyroidism, unspecified; D64.9 Anemia, unspecified; E83.41 Hypermagnesemia; E83.39 Other disorders of phosphorus metabolism; E83.51 Hypocalcemia; E87.6 Hypokalemia; J44.9 Chronic obstructive pulmonary disease, unspecified; Z86.73 Personal history of transient ischemic attack (TIA), and cerebral infarction without residual deficits; Z95.0 Presence of cardiac pacemaker; Z82.49 Family history of ischemic heart disease and other diseases of the circulatory system; Z80.9 Family history of malignant neoplasm, unspecified; Y93.89 Activity, other specified; Y92.89 Other specified places as the place of occurrence of the external cause; Y99.8 Other external cause status; Z91.14 Patient's other noncompliance with medication regimen
CPT/HCPCS: 36569; 82962; 83880; 84439

== ENCOUNTER 2017-11-17 04:15 | Inpatient (IN) | payer OTHER ==
[~2017-11-17] VITALS: Ht 182.9 cm; Wt 61.8 kg
[~2017-11-17 04:15] MED LIST changes: +BUMETANIDE2 MG PO; +COLACE100 MG PO; +FLOMAX0.4 MG PO; +GABAPENTIN400 M1 PO; +HUMALOG100 U/ML SQ; +KLOR-CON M2020 MEQ PO; +MIRALAX17 GM/Dose PO; +RENVELA800 M1 PO; +TRA50 PO; +ZINC SULFATE220 MG PO; +ZOLOFT100 MG PO
[2017-11-17 05:07] LABS: BASOPHIL % 0.7 % (0-2); PLATELET COUNT 267 x10^3mcL (130-400)
[2017-11-17 05:10] LABS: BILIRUBIN TOTAL 0.5 mg/dL (0.20-1.00); CARBON DIOXIDE 37.2 mmol/L (21-32); CREATININE SERUM 2.7 mg/dL (0.7-1.3); MAGNESIUM 2.5 mg/dL (1.8-2.4); POTASSIUM SERUM 3.4 mmol/L (3.5-5.1); RED CELL DISTRIBUTION WIDTH 17.8 % (11.5-14.5); TOTAL PROTEIN, SERUM 7.2 g/dL (6.4-8.2)
[2017-11-17 05:12] LABS: ALBUMIN 2.9 g/dL (3.4-5.0)
[2017-11-17 07:48] VITALS: BP 154/81
[2017-11-17 08:39] LABS: PHOSPHOROUS 4.7 mg/dL (2.5-4.9)
[2017-11-17 08:47] LABS: CHOLESTEROL/HDL RATIO 2.2
[2017-11-17 10:39] LABS: T3 TOTAL 0.78 ng/mL
[2017-11-17 11:01] LABS: FREE T4 0.5 ng/dL (0.76-1.46)
[2017-11-17 11:02] VITALS: BP 165/83
[2017-11-17 11:15] LABS: FREE THYROXINE INDEX 1.1 ug/dL (1.4-4.5); T4(THYROXINE) 3.8 ug/dL (4.7-13.3)
[2017-11-17 15:11] VITALS: BP 128/74
[2017-11-17 17:30] VITALS: BP 123/68
[2017-11-17 19:18] LABS: microscopic required? YES; urine erythrocyte NEGATIVE (NEGATIVE)
[2017-11-17 19:26] LABS: AMPHETAMINE QUAL UR NONE DETECTED (See below)
[2017-11-17 20:01] VITALS: BP 149/77
[2017-11-17 23:21] VITALS: BP 146/76
== END 2017-11-18 04:11 | disposition short-term general hospital (02) | DRG 190 ==
LOC: ED 04:15 → IC 07:08 → DU 07:08 → IC 10:45
PROVIDERS: Emergency Medicine; Family Medicine
DX: I21.4 Non-ST elevation (NSTEMI) myocardial infarction (principal); N17.0 Acute kidney failure with tubular necrosis; I49.01 Ventricular fibrillation; I47.2 Ventricular tachycardia; I50.43 Acute on chronic combined systolic (congestive) and diastolic (congestive) heart failure; E44.0 Moderate protein-calorie malnutrition; E11.65 Type 2 diabetes mellitus with hyperglycemia; I25.10 Atherosclerotic heart disease of native coronary artery without angina pectoris; J44.9 Chronic obstructive pulmonary disease, unspecified; I25.5 Ischemic cardiomyopathy; F32.9 Major depressive disorder, single episode, unspecified; I11.0 Hypertensive heart disease with heart failure; F17.210 Nicotine dependence, cigarettes, uncomplicated; E83.41 Hypermagnesemia; E87.6 Hypokalemia; Z95.1 Presence of aortocoronary bypass graft; E83.51 Hypocalcemia; Z79.4 Long term (current) use of insulin; Z95.810 Presence of automatic (implantable) cardiac defibrillator; Z86.73 Personal history of transient ischemic attack (TIA), and cerebral infarction without residual deficits; Z91.14 Patient's other noncompliance with medication regimen; Z82.49 Family history of ischemic heart disease and other diseases of the circulatory system; Z80.9 Family history of malignant neoplasm, unspecified
CPT/HCPCS: 82962; 83880; 84439; J0282; J1815; J7030; Q0092

== ENCOUNTER 2017-12-06 19:54 | Inpatient (IN) | payer OTHER ==
[~2017-12-06] VITALS: Ht 160 cm; Wt 72.2 kg
[~2017-12-06 19:54] MED LIST changes: +ANUSOL-HC25 MG/SUPP RC
[2017-12-06 20:57] LABS: BASOPHIL % 0.7 % (0-2); PLATELET COUNT 220 x10^3mcL (130-400); RED CELL DISTRIBUTION WIDTH 19.8 % (11.5-14.5)
[2017-12-06 21:07] LABS: CALCIUM 7.6 mg/dL (8.5-10.1); CARBON DIOXIDE 32.4 mmol/L (21-32); CREATININE SERUM 2.2 mg/dL (0.7-1.3); POTASSIUM SERUM 3.7 mmol/L (3.5-5.1)
[2017-12-06 21:12] LABS: BILIRUBIN TOTAL 0.4 mg/dL (0.20-1.00); TOTAL PROTEIN, SERUM 7.2 g/dL (6.4-8.2)
[2017-12-06 21:13] LABS: ALBUMIN 2.9 g/dL (3.4-5.0)
[2017-12-06 21:38] LABS: microscopic required? YES; urine erythrocyte NEGATIVE (NEGATIVE)
[2017-12-06 21:47] LABS: AMPHETAMINE QUAL UR NONE DETECTED (See below)
[2017-12-07 00:15] LABS: PHOSPHOROUS 3.9 mg/dL (2.5-4.9)
[2017-12-07 00:17] LABS: CHOLESTEROL/HDL RATIO 2.1
[2017-12-07 00:29] VITALS: BP 160/62
[2017-12-07 00:37] VITALS: Ht 160 cm; Wt 72.2 kg
[2017-12-07 06:05] VITALS: BP 109/63
[2017-12-07 09:46] VITALS: BP 157/76
[2017-12-07 11:53] VITALS: BP 163/82
[2017-12-07 16:40] VITALS: BP 132/66
[2017-12-07 20:58] VITALS: BP 163/83
[2017-12-08 04:44] VITALS: BP 161/83
[2017-12-08 06:30] LABS: PLATELET COUNT 202 x10^3mcL (130-400)
[2017-12-08 06:54] LABS: CALCIUM 7.5 mg/dL (8.5-10.1); CARBON DIOXIDE 30.2 mmol/L (21-32); CREATININE SERUM 2.1 mg/dL (0.7-1.3); PHOSPHOROUS 4.2 mg/dL (2.5-4.9)
[2017-12-08 06:56] LABS: POTASSIUM SERUM 2.4 mmol/L (3.5-5.1)
[2017-12-08 07:07] LABS: RED CELL DISTRIBUTION WIDTH 19.7 % (11.5-14.5)
[2017-12-08 09:41] VITALS: BP 156/84
[2017-12-08 13:14] VITALS: BP 135/71
[2017-12-08 15:59] VITALS: BP 137/82
[2017-12-08 21:02] VITALS: BP 114/69
[2017-12-09 05:23] VITALS: BP 140/85
[2017-12-09 06:42] LABS: PLATELET COUNT 230 x10^3mcL (130-400)
[2017-12-09 06:48] LABS: RED CELL DISTRIBUTION WIDTH 19.1 % (11.5-14.5)
[2017-12-09 06:55] LABS: CALCIUM 7.6 mg/dL (8.5-10.1); CARBON DIOXIDE 34.3 mmol/L (21-32); CREATININE SERUM 2.3 mg/dL (0.7-1.3); POTASSIUM SERUM 3.7 mmol/L (3.5-5.1)
[2017-12-09 07:14] LABS: TOTAL IRON BINDING CAPACITY 310 ug/dL (250-450)
[2017-12-09 07:15] LABS: IRON 27 ug/dL (65-170)
[2017-12-09 09:53] VITALS: BP 165/89
[2017-12-09 12:57] VITALS: BP 157/77
[2017-12-09 17:04] VITALS: BP 111/75
[2017-12-09 20:49] VITALS: BP 144/68
[2017-12-10 05:18] VITALS: BP 139/67
[2017-12-10 09:21] LABS: PLATELET COUNT 215 x10^3mcL (130-400)
[2017-12-10 09:22] LABS: BASOPHIL % 3.6 % (0-2); RED CELL DISTRIBUTION WIDTH 17.7 % (11.5-14.5)
[2017-12-10 09:30] VITALS: BP 137/67
[2017-12-10 10:30] LABS: rbc morphology (normal/abnorm) ABNORMAL (NORMAL)
[2017-12-10 10:36] LABS: CALCIUM 7.3 mg/dL (8.5-10.1); CARBON DIOXIDE 33.7 mmol/L (21-32); CREATININE SERUM 2.2 mg/dL (0.7-1.3)
[2017-12-10 10:47] VITALS: BP 137/67
[2017-12-10 13:40] VITALS: BP 134/68
[2017-12-10 17:14] VITALS: BP 156/75
[2017-12-10 20:27] VITALS: BP 134/64
[2017-12-11 05:34] VITALS: BP 136/75
[2017-12-11 07:38] LABS: PLATELET COUNT 219 x10^3mcL (130-400)
[2017-12-11 07:46] LABS: BASOPHIL % 2.4 % (0-2); RED CELL DISTRIBUTION WIDTH 17.6 % (11.5-14.5)
[2017-12-11 07:54] LABS: CALCIUM 7.6 mg/dL (8.5-10.1); CARBON DIOXIDE 32.6 mmol/L (21-32); CREATININE SERUM 2.3 mg/dL (0.7-1.3)
[2017-12-11 08:08] LABS: POTASSIUM SERUM 2.8 mmol/L (3.5-5.1)
[2017-12-11 09:05] LABS: ovalocyte/elliptocyte 1+; rbc morphology (normal/abnorm) ABNORMAL (NORMAL)
[2017-12-11 09:07] VITALS: BP 160/73
[2017-12-11 13:04] VITALS: BP 130/70
[2017-12-11] MEDS ORDERED: ATORVASTATIN CA40 M1 PO (16:45)
[2017-12-11] MEDS ORDERED: IPRATROPIUM BROM3 M2 HHN (16:45)
[2017-12-11] MEDS ORDERED: ECO81 PO (16:46)
[2017-12-11 16:51] VITALS: BP 142/77
[2017-12-11 17:26] VITALS: BP 142/77
[2017-12-11 20:57] VITALS: BP 145/61
== END 2017-12-11 21:01 | DRG 194 ==
LOC: ED 19:54 → DU 22:18
PROVIDERS: Emergency Medicine; Family Medicine
DX: I13.0 Hypertensive heart and chronic kidney disease with heart failure and stage 1 through stage 4 chronic kidney disease, or unspecified chronic kidney disease (principal); N17.0 Acute kidney failure with tubular necrosis; E44.0 Moderate protein-calorie malnutrition; D68.69 Other thrombophilia; E11.51 Type 2 diabetes mellitus with diabetic peripheral angiopathy without gangrene; E11.22 Type 2 diabetes mellitus with diabetic chronic kidney disease; G90.8 Other disorders of autonomic nervous system; I50.43 Acute on chronic combined systolic (congestive) and diastolic (congestive) heart failure; E11.622 Type 2 diabetes mellitus with other skin ulcer; E83.51 Hypocalcemia; D63.8 Anemia in other chronic diseases classified elsewhere; I87.2 Venous insufficiency (chronic) (peripheral); E87.6 Hypokalemia; L03.116 Cellulitis of left lower limb; R80.9 Proteinuria, unspecified; J44.9 Chronic obstructive pulmonary disease, unspecified; L97.921 Non-pressure chronic ulcer of unspecified part of left lower leg limited to breakdown of skin; F32.9 Major depressive disorder, single episode, unspecified; E03.9 Hypothyroidism, unspecified; D50.9 Iron deficiency anemia, unspecified; Z99.3 Dependence on wheelchair; Z95.1 Presence of aortocoronary bypass graft; Z87.891 Personal history of nicotine dependence; Z79.84 Long term (current) use of oral hypoglycemic drugs; Z95.810 Presence of automatic (implantable) cardiac defibrillator; Z86.73 Personal history of transient ischemic attack (TIA), and cerebral infarction without residual deficits; Z79.4 Long term (current) use of insulin; Z79.899 Other long term (current) drug therapy; Z80.9 Family history of malignant neoplasm, unspecified; Z82.49 Family history of ischemic heart disease and other diseases of the circulatory system; Z68.28 Body mass index [BMI] 28.0-28.9, adult; Z76.5 Malingerer [conscious simulation]; Z91.19 Patient's noncompliance with other medical treatment and regimen
CPT/HCPCS: 82962; 83880; 97110-GP; 97530-GP; J1940; J3480; J7030; J7620; Q0092

== ENCOUNTER 2018-01-28 13:07 | Inpatient (IN) | payer OTHER ==
[~2018-01-28] VITALS: Ht 160 cm; Wt 72.3 kg
[~2018-01-28 13:07] MED LIST changes: +ATORVASTATIN CA40 M1 PO; +ECO81 PO; +IPRATROPIUM BROM3 M2 HHN
[2018-01-28 15:45] LABS: CALCIUM 7.5 mg/dL (8.5-10.1); CARBON DIOXIDE 31.6 mmol/L (21-32); CREATININE SERUM 2.6 mg/dL (0.7-1.3); POTASSIUM SERUM 3.9 mmol/L (3.5-5.1); URIC ACID 11.1 mg/dL (3.5-7.2)
[2018-01-28 15:48] LABS: BASOPHIL % 0.6 % (0-2); PLATELET COUNT 298 x10^3mcL (130-400)
[2018-01-28 16:12] LABS: rbc morphology (normal/abnorm) ABNORMAL (NORMAL); tear drop cell (dacryocyte) 1+
[2018-01-28 16:13] LABS: ovalocyte/elliptocyte 1+
[2018-01-28 17:18] LABS: MAGNESIUM 2.5 mg/dL (1.8-2.4); PHOSPHOROUS 4.5 mg/dL (2.5-4.9)
[2018-01-28 18:23] LABS: T3 TOTAL 0.94 ng/mL
[2018-01-28 18:36] LABS: CHOLESTEROL/HDL RATIO 2.3
[2018-01-28 18:39] LABS: FREE T4 0.43 ng/dL (0.76-1.46)
[2018-01-28 18:46] LABS: T4(THYROXINE) 3.2 ug/dL (4.7-13.3)
[2018-01-28 19:27] VITALS: BP 144/58
[2018-01-28 20:39] VITALS: BP 165/85
[2018-01-29 04:49] VITALS: BP 165/85
[2018-01-29 05:12] LABS: microscopic required? YES; urine erythrocyte NEGATIVE (NEGATIVE)
[2018-01-29 05:54] VITALS: BP 154/86
[2018-01-29 06:10] LABS: AMPHETAMINE QUAL UR NONE DETECTED (See below)
[2018-01-29 07:02] LABS: BASOPHIL % 0.6 % (0-2); PLATELET COUNT 268 x10^3mcL (130-400)
[2018-01-29 07:14] LABS: CALCIUM 7.6 mg/dL (8.5-10.1); CARBON DIOXIDE 31.7 mmol/L (21-32); CREATININE SERUM 2.6 mg/dL (0.7-1.3); MAGNESIUM 2.4 mg/dL (1.8-2.4); PHOSPHOROUS 4.6 mg/dL (2.5-4.9); POTASSIUM SERUM 3.8 mmol/L (3.5-5.1); URIC ACID 10.3 mg/dL (3.5-7.2)
[2018-01-29 08:10] LABS: RED CELL DISTRIBUTION WIDTH 19.4 % (11.5-14.5)
[2018-01-29 09:13] VITALS: BP 147/81
[2018-01-29 09:14] VITALS: Ht 160 cm; Wt 72.3 kg
[2018-01-29 13:03] VITALS: BP 143/78
[2018-01-29 17:42] VITALS: BP 148/86
[2018-01-29 21:01] VITALS: BP 139/75
[2018-01-30 05:28] VITALS: BP 143/85
[2018-01-30 07:02] LABS: PLATELET COUNT 231 x10^3mcL (130-400)
[2018-01-30 07:04] LABS: RED CELL DISTRIBUTION WIDTH 19.4 % (11.5-14.5)
[2018-01-30 07:21] LABS: CALCIUM 7.1 mg/dL (8.5-10.1); CARBON DIOXIDE 25.5 mmol/L (21-32); CREATININE SERUM 2.5 mg/dL (0.7-1.3); MAGNESIUM 2.5 mg/dL (1.8-2.4); PHOSPHOROUS 5.4 mg/dL (2.5-4.9)
[2018-01-30 08:36] VITALS: BP 136/73
[2018-01-30 13:19] VITALS: BP 139/81
[2018-01-30 16:25] VITALS: BP 151/91
[2018-01-30 22:15] VITALS: BP 150/84
[2018-01-31 05:38] VITALS: BP 168/92
[2018-01-31 06:32] LABS: BASOPHIL % 0.3 % (0-2); PLATELET COUNT 257 x10^3mcL (130-400)
[2018-01-31 07:15] LABS: CALCIUM 7.6 mg/dL (8.5-10.1); CARBON DIOXIDE 28.4 mmol/L (21-32); CREATININE SERUM 2.5 mg/dL (0.7-1.3); POTASSIUM SERUM 3.6 mmol/L (3.5-5.1)
[2018-01-31 09:37] VITALS: BP 140/80
[2018-01-31 13:44] VITALS: BP 156/93
[2018-01-31 17:19] VITALS: BP 172/85
[2018-01-31] MEDS ORDERED: ISOSORBIDE MONO30 MG PO (20:25)
[2018-01-31] MEDS ORDERED: LIPI10 PO (20:25)
[2018-01-31] MEDS ORDERED: ALD25 PO (20:26)
[2018-01-31 20:33] VITALS: BP 157/92
[2018-01-31 21:23] VITALS: BP 157/92
== END 2018-01-31 23:29 | DRG 194 ==
LOC: ED 13:07 → DU 17:03
PROVIDERS: Emergency Medicine; Internal Medicine
DX: I13.0 Hypertensive heart and chronic kidney disease with heart failure and stage 1 through stage 4 chronic kidney disease, or unspecified chronic kidney disease (principal); N17.0 Acute kidney failure with tubular necrosis; J96.20 Acute and chronic respiratory failure, unspecified whether with hypoxia or hypercapnia; E11.22 Type 2 diabetes mellitus with diabetic chronic kidney disease; E11.42 Type 2 diabetes mellitus with diabetic polyneuropathy; E83.41 Hypermagnesemia; I08.1 Rheumatic disorders of both mitral and tricuspid valves; E11.51 Type 2 diabetes mellitus with diabetic peripheral angiopathy without gangrene; N18.3 Chronic kidney disease, stage 3 (moderate); E11.649 Type 2 diabetes mellitus with hypoglycemia without coma; I50.43 Acute on chronic combined systolic (congestive) and diastolic (congestive) heart failure; E11.65 Type 2 diabetes mellitus with hyperglycemia; M10.9 Gout, unspecified; E03.9 Hypothyroidism, unspecified; I42.9 Cardiomyopathy, unspecified; E87.1 Hypo-osmolality and hyponatremia; S92.054A Nondisplaced other extraarticular fracture of right calcaneus, initial encounter for closed fracture; M19.071 Primary osteoarthritis, right ankle and foot; I25.110 Atherosclerotic heart disease of native coronary artery with unstable angina pectoris; D64.9 Anemia, unspecified; F32.9 Major depressive disorder, single episode, unspecified; J44.9 Chronic obstructive pulmonary disease, unspecified; Z59.0 Homelessness; Z68.23 Body mass index [BMI] 23.0-23.9, adult; Z95.1 Presence of aortocoronary bypass graft; Z95.810 Presence of automatic (implantable) cardiac defibrillator; Z86.73 Personal history of transient ischemic attack (TIA), and cerebral infarction without residual deficits; Z82.49 Family history of ischemic heart disease and other diseases of the circulatory system; Z80.9 Family history of malignant neoplasm, unspecified
CPT/HCPCS: 82962; 83880; 84439; 94150; J1815; J1885; J2060; J2270; J3490; J7030; J7620; Q0092